=== PATIENT | female | born 1980 | race Two or more races ===

== ENCOUNTER 2021-11-27 08:40 | Emergency (ER) | payer MEDICAID ==
[~2021-11-27] VITALS: Ht 152.4 cm; Wt 68.0 kg
[2021-11-27 08:44] VITALS: BP 123/75
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
[2021-11-27] MEDS ORDERED: ONDANSETRON 4 MG TAB.RAPDIS PO ONE (09:00)
[2021-11-27] MEDS ORDERED: ACETAMINOPHEN ES 500 MG TABLET PO ONE (09:00)
[2021-11-27] MEDS ORDERED: ACETAMINOPHEN ES 500 MG TABLET ONE (09:04)
[2021-11-27] MEDS ORDERED: ONDANSETRON 4 MG TAB.RAPDIS ONE (09:05)
--- NOTE | 2021-11-27 11:03 | NUR ---
Patient discharged to home in stable condition. Written and verbal after care instructions given. Patient verbalizes understanding of instruction.
== END 2021-11-27 11:03 | disposition home or self-care (01) ==
LOC: ER 08:45
DX: S80.11XA Contusion of right lower leg, initial encounter (principal); M79.632 Pain in left forearm; V89.2XXA Person injured in unspecified motor-vehicle accident, traffic, initial encounter; Y93.89 Activity, other specified; Y92.89 Other specified places as the place of occurrence of the external cause; Y99.8 Other external cause status
CPT/HCPCS: 99284; 73080; 73090; 73030; 73590; 73110; Q0162